=== PATIENT | male | born 1940 | race Asian ===

== ENCOUNTER 2017-12-05 17:48 | Emergency (ER) | payer MEDICARE, OTHER ==
[~2017-12-05] VITALS: Ht 177.8 cm; Wt 106.4 kg
[~2017-12-05 17:48] MED LIST: CARV25TA2 PO; HYDR12.5 PO; NITR0.4T SL; RAMI10CA44 PO; WARF3TAB27 PO
[2017-12-05 17:53] VITALS: BP 121/58
[2017-12-05] MEDS ORDERED: CYCL-1 PO (18:11)
== END 2017-12-05 18:23 | disposition home or self-care (01) ==
LOC: ER 17:49
DX: M54.5 Low back pain (principal); M62.830 Muscle spasm of back; I48.91 Unspecified atrial fibrillation; I25.10 Atherosclerotic heart disease of native coronary artery without angina pectoris; I10 Essential (primary) hypertension; I25.2 Old myocardial infarction; Z95.1 Presence of aortocoronary bypass graft; Z88.1 Allergy status to other antibiotic agents; Z79.01 Long term (current) use of anticoagulants; Z79.899 Other long term (current) drug therapy; X50.1XXA Overexertion from prolonged static or awkward postures, initial encounter; Y93.89 Activity, other specified; Y92.89 Other specified places as the place of occurrence of the external cause; Y99.9 Unspecified external cause status
CPT/HCPCS: 99283

== ENCOUNTER 2018-03-14 09:51 | Inpatient (IN) | payer MEDICARE, OTHER ==
[~2018-03-14] VITALS: Ht 177.8 cm; Wt 10.7 kg
[~2018-03-14 09:51] MED LIST changes: +CYCL-1 PO
[2018-03-14 10:43] LABS: BASOPHILS % (AUTO) 0.3 % (0-1); EOSINOPHILS # (AUTO) 0.1 X10'3 (0-0.9); EOSINOPHILS % (AUTO) 2.4 % (0-6); HEMATOCRIT 36.8 % (42.0-52.0); HEMOGLOBIN 12.2 g/dl (14.0-17.9); LYMPHOCYTES # (AUTO) 0.9 X10'3 (1.1-4.8); LYMPHOCYTES % (AUTO) 18.2 % (21-51); MEAN CORPUSCULAR HEMOGLOBIN 33.5 PG (27.0-31.0); MEAN CORPUSCULAR HGB CONC 33.1 % (33.0-36.5); MEAN CORPUSCULAR VOLUME 101.3 FL (78-98); MEAN PLATELET VOLUME 9.4 FL (7.4-10.4); MONOCYTES # (AUTO) 0.3 X10'3 (0-0.9); MONOCYTES % (AUTO) 6.4 % (2-12); NEUTROPHILS # (AUTO) 3.7 X10'3 (1.8-7.7); NEUTROPHILS % (AUTO) 72.7 % (42-75); PLATELET COUNT 131 X10'3 (140-440); RED BLOOD COUNT 3.64 X10'6 (4.70-6.10); WHITE BLOOD COUNT 5.1 X10'3 (4.5-11.0)
[2018-03-14 10:50] LABS: INR 2.6 INR; PARTIAL THROMBOPLASTIN TIME 46 SECONDS (22-32); PROTHROMBIN TIME 25.3 SECONDS (9.0-12.0)
[2018-03-14 10:51] LABS: ALANINE AMINOTRANSFERASE 15 U/L (12-78); ALBUMIN 3.9 G/DL (3.4-5.0); ALKALINE PHOSPHATASE 65 IU/L (46-116); ANION GAP 13 (8-16); ASPARTATE AMINO TRANSFERASE 14 U/L (10-37); BLOOD UREA NITROGEN 24 MG/DL (7-18); BUN/CREATININE RATIO 24.7 (5.4-32.0); CALCIUM 9.4 MG/DL (8.5-10.1); CHLORIDE 104 MMOL/L (99-107); CREATININE 0.97 MG/DL (0.60-1.10); GLUCOSE 119 MG/DL (70-104); POTASSIUM 3.7 MMOL/L (3.5-5.1); SODIUM 141 MMOL/L (135-145); TOTAL CARBON DIOXIDE 24.2 MMOL/L (24-32); TOTAL PROTEIN 7.9 G/DL (6.4-8.2); eGFR 75 ML/MIN
[2018-03-14] MEDS ORDERED: aspirin 325mg tablet PO ONE (12:10)
[2018-03-14] MEDS ORDERED: GEMF600T89 PO (12:38)
[2018-03-14] MEDS ORDERED: ALBU8.5H8 IH (12:38)
[2018-03-14] MEDS ORDERED: UMEC1DIS IH (12:38)
[2018-03-14] MEDS ORDERED: ASCO500C15 PO (12:38)
[2018-03-14] MEDS ORDERED: nitroGLYCERIN 0.4mg SUBLingual tab SL PRN ×2 (12:50→13:15)
[2018-03-14] MEDS ORDERED: albuterol 2.5 MG/3 ML nebule NEB PRN (13:00)
[2018-03-14] MEDS ORDERED: magnesium 4gm in 100ml NS 100 ML IV PRN (13:15)
[2018-03-14] MEDS ORDERED: HYDROcodone/acetaminophen 5mg/325mg tablet PO PRN (13:15)
[2018-03-14] MEDS ORDERED: magnesium 2GM in 50ml NS 50 ML IV PRN (13:15)
[2018-03-14] MEDS ORDERED: morphine 4 MG/ML inj SYRINge IV PRN (13:15)
[2018-03-14] MEDS ORDERED: acetaminophen 325mg tablet PO PRN ×2 (13:15)
[2018-03-14] MEDS ORDERED: mag hydrox/Alum hydrox/simeth 30ml oral suspension PO PRN (13:15)
[2018-03-14] MEDS ORDERED: regadenoson 0.4mg/5ml syringe IV PRN (13:15)
[2018-03-14] MEDS ORDERED: aminophylline 250mg/10ml inj. IV PRN (13:15)
[2018-03-14] MEDS ORDERED: magnesium Cl slow-release 64mg tablet PO PRN (13:15)
[2018-03-14] MEDS ORDERED: potassium Cl 20 mEq SR tablet PO PRN ×2 (13:15)
[2018-03-14] MEDS ORDERED: potassium Cl 40MEQ/NS 500ml 500 ML IV PRN ×2 (13:15)
[2018-03-14] MEDS ORDERED: ondansetron/PF 4mg/2ml inj IV PRN (13:15)
[2018-03-14] MEDS ORDERED: metoprolol tartrate 1mg/ml inj IV PRN (13:15)
[2018-03-14] MEDS: normal saline 1000ml 1,000 ML IV SCH ×2 (13:56→17:53)
[2018-03-14 15:00] VITALS: BP 154/80
--- NOTE | 2018-03-14 17:37 | NUR ---
RECEIVED REPORT FROM JUDI CALIXTO. PATIENT TRANSFERRED TO 301, ALERT AND ORIENTED. ALL BELONGINGS BROUGHT WITH PATIENT. 2 RN SKIN CHECK PERFORMED, NO SKIN ISSUES NOTED. ALL VITALS STABLE, NO CHEST PAIN AT THIS TIME. PATIENT IS AMBULATORY AND STABLE. ALL NEEDS ADDRESSED.
--- NOTE | 2018-03-14 18:30 | NUR ---
Received report from primary care nurse Valeria LAU. Assumed patient care. Patient is awake and alert on room air. In no apparent distress. Call light and items of frequent use within reach. Will continue to monitor for changes.
--- NOTE | 2018-03-14 18:41 | NUR ---
Problems reprioritized. Patient report given, questions answered & plan of care reviewed with JUDI IGNACIO.
[2018-03-14 19:00] VITALS: BP 125/56
[2018-03-14] MEDS: heparin, porcine 5000 units/ml vial SQ SCH (20:00)
[2018-03-14] MEDS: docusate sod 100mg capsule PO SCH (20:00)
[2018-03-14] MEDS: carVEDilol 12.5mg tablet PO SCH (20:04)
[2018-03-14] MEDS ORDERED: warfarin 2.5mg tablet PO SCH (21:00)
[2018-03-14] MEDS ORDERED: lisinopril 20mg tablet PO SCH (21:00)
[2018-03-14] MEDS ORDERED: temazepam 15mg capsule PO PRN (21:00)
[2018-03-14] MEDS ORDERED: RAMIPRIL 10 MG PO SCH (21:00)
[2018-03-14 23:00] VITALS: BP 116/56
[2018-03-15 03:00] VITALS: BP 110/62
[2018-03-15] MEDS: normal saline 1000ml 1,000 ML IV SCH (04:40)
[2018-03-15 06:00] VITALS: BP 139/67
[2018-03-15 06:04] LABS: BASOPHILS % (AUTO) 0.2 % (0-1); EOSINOPHILS # (AUTO) 0.2 X10'3 (0-0.9); HEMATOCRIT 36.1 % (42.0-52.0); HEMOGLOBIN 12.1 g/dl (14.0-17.9); MEAN CORPUSCULAR HEMOGLOBIN 33.6 PG (27.0-31.0); MEAN CORPUSCULAR HGB CONC 33.4 % (33.0-36.5); MEAN CORPUSCULAR VOLUME 100.6 FL (78-98); MEAN PLATELET VOLUME 9.6 FL (7.4-10.4); MONOCYTES # (AUTO) 0.5 X10'3 (0-0.9); MONOCYTES % (AUTO) 8.6 % (2-12); NEUTROPHILS % (AUTO) 70.2 % (42-75); PLATELET COUNT 128 X10'3 (140-440); RED BLOOD COUNT 3.58 X10'6 (4.70-6.10); WHITE BLOOD COUNT 5.7 X10'3 (4.5-11.0)
--- NOTE | 2018-03-15 06:12 | NUR ---
Reported off to Shweta LAU. Patient is awake and alert on room air. In no apparent distress. Call light and items of frequent use within reach.
[2018-03-15 06:18] LABS: ALBUMIN 3.7 G/DL (3.4-5.0); ANION GAP 9 (8-16); BLOOD UREA NITROGEN 22 MG/DL (7-18); BUN/CREATININE RATIO 22.2 (5.4-32.0); CALCIUM 9.2 MG/DL (8.5-10.1); CHLORIDE 104 MMOL/L (99-107); CREATININE 0.99 MG/DL (0.60-1.10); GLUCOSE 123 MG/DL (70-104); MAGNESIUM 1.9 MG/DL (1.5-2.4); POTASSIUM 3.4 MMOL/L (3.5-5.1); SODIUM 139 MMOL/L (135-145); TOTAL CARBON DIOXIDE 25.9 MMOL/L (24-32); eGFR 74 ML/MIN
--- NOTE | 2018-03-15 06:27 | NUR ---
Patient in room PCU 3016. I have received report from Katlyn LAU and had the opportunity to ask questions and assume patient care. Pt is on room air, NS running at 75 mL/hr, alert and oriented X4, in no apparent distress, will continue to monitor.
[2018-03-15 06:29] LABS: INR 2.7 INR; PROTHROMBIN TIME 26.2 SECONDS (9.0-12.0)
[2018-03-15] MEDS: carVEDilol 12.5mg tablet PO SCH (07:52)
[2018-03-15] MEDS ORDERED: ANORO ELLIPTA IH SCH (08:00)
[2018-03-15] MEDS ORDERED: ascorbic acid 500mg tablet PO SCH (08:00)
[2018-03-15] MEDS: docusate sod 100mg capsule PO SCH (08:00)
[2018-03-15] MEDS ORDERED: non-formulary drug (Umeclidinium Brm/Vilanterol Tr (Anoro Ellipta 62.5-25 Mcg INH) 1 PUFF) IH SCH (08:00)
[2018-03-15] MEDS ORDERED: K and/or MAG REPLACEMENT MC SCH (08:00)
[2018-03-15] MEDS ORDERED: HYDROchlorothiazide 12.5mg capsule PO SCH (08:00)
[2018-03-15] MEDS ORDERED: gemfibrozil 600mg tablet PO SCH (08:00)
[2018-03-15] MEDS: heparin, porcine 5000 units/ml vial SQ SCH (08:00)
[2018-03-15 11:00] VITALS: BP 126/67
--- NOTE | 2018-03-15 12:30 | NUR ---
IV discontinued with canula intact, tele monitor discontinued, discharge instructions reviewed with patient including when to take his medications and to follow up with Dr. Weaver in three days. Pt stable at discharge and alert and oriented X 4. Pt left in private vehicle driven by spouse with all of his belongings.
== END 2018-03-15 12:20 | disposition home or self-care (01) | DRG 303 ==
LOC: ER 09:52 → ED HOLD 13:13 → PCU 3S 13:15
PROVIDERS: ADMIT Internal Medicine; ATTEND Hospitalist
PROC: 5A09357 Assistance with Respiratory Ventilation, Less than 24 Consecutive Hours, Continuous Positive Airway Pressure (ICD-10-PCS; principal; 2018-03-14)
DX: I25.110 Atherosclerotic heart disease of native coronary artery with unstable angina pectoris (principal); G47.30 Sleep apnea, unspecified; D69.6 Thrombocytopenia, unspecified; I48.91 Unspecified atrial fibrillation; I10 Essential (primary) hypertension; J44.9 Chronic obstructive pulmonary disease, unspecified; N40.0 Benign prostatic hyperplasia without lower urinary tract symptoms; I25.2 Old myocardial infarction; Z91.14 Patient's other noncompliance with medication regimen; Z95.0 Presence of cardiac pacemaker; Z95.1 Presence of aortocoronary bypass graft; Z88.1 Allergy status to other antibiotic agents; Z79.01 Long term (current) use of anticoagulants; Z79.899 Other long term (current) drug therapy
CPT/HCPCS: 36415; 71045; 80048; 80053; 83735; 84484; 85025; 85610; 85730; 87070; 93005; 93306; 94760; 99285; G0378; J1644; J7030

== ENCOUNTER 2018-10-23 12:39 | Emergency (ER) | payer MEDICARE, OTHER ==
[~2018-10-23] VITALS: Ht 177.8 cm; Wt 105.9 kg
[~2018-10-23 12:39] MED LIST changes: +ALBU8.5H8 IH; +ASCO500C15 PO; +CLOP75TA35 PO; -CYCL-1 PO; +GEMF600T89 PO; +UMEC1DIS IH
[2018-10-23 12:59] VITALS: BP 117/59
== END 2018-10-23 14:16 | disposition home or self-care (01) ==
LOC: ER 12:40
DX: J02.8 Acute pharyngitis due to other specified organisms (principal); B97.89 Other viral agents as the cause of diseases classified elsewhere; I48.91 Unspecified atrial fibrillation; I25.10 Atherosclerotic heart disease of native coronary artery without angina pectoris; I10 Essential (primary) hypertension; I25.2 Old myocardial infarction; J44.9 Chronic obstructive pulmonary disease, unspecified; N40.0 Benign prostatic hyperplasia without lower urinary tract symptoms; Z95.1 Presence of aortocoronary bypass graft; Z88.1 Allergy status to other antibiotic agents; Z79.01 Long term (current) use of anticoagulants; Z79.899 Other long term (current) drug therapy
CPT/HCPCS: 99281